=== PATIENT | male | born 1980 | race Asian ===

== ENCOUNTER 2021-06-27 23:46 | Emergency (ER) | payer OTHER ==
[~2021-06-27] VITALS: Ht 175.3 cm; Wt 83.7 kg
[2021-06-28] MEDS ORDERED: IV NORMAL SALINE 1,000ML 1,000 ML IV ONE
--- NOTE | 2021-06-28 00:01 | PHYS DOC ---
Past History Past Surgical History: No Surgical History General Adult EDM: Chief Complaint: NAUSEA/VOMITING/DIARRHEA HPI: HPI: 41-year-old male presents with nausea and vomiting that started 30 minutes ago. He states having a feeling of "impending doom". He feels fatigued and "not quite right". No reported fever at home. His only medication is lisinopril for hypertension. He did not take his dose today because he ran out yesterday. He gets a refill tomorrow. Patient denies abdominal pain, chest pain, shortness of breath. Review of Systems: Review of Systems: Constitutional: Denies fever or chills Eyes: Denies change in visual acuity HENT: Denies nasal congestion or sore throat Respiratory: Denies cough or shortness of breath Cardiovascular: Denies chest pain or edema GI: nausea, vomiting. Denies abdominal pain, bloody stools or diarrhea : Denies dysuria Musculoskeletal: Denies back pain or joint pain Integument: Denies rash Neurologic: Denies headache, focal weakness or sensory changes Endocrine: Denies polyuria or polydipsia Lymphatic: Denies swollen glands Psychiatric: Anxiety Current Medications: Current Meds: Current Medications Medications (Trade) Dose Ordered Sig/Whitney Start Time Stop Time Status Last Admin Dose Admin Ondansetron HCl (Zofran) 4 mg 1X ONCE 06/28/21 00:00 06/28/21 00:01 Sodium Chloride 1,000 ml @ 1,000 mls/hr 1X ONCE 06/28/21 00:00 06/28/21 00:59 Allergies: Allergies: Allergies Coded Allergies Type Severity Reaction Last Updated Verified No Known Drug Allergies 06/27/21 No Physical Exam: PE: Constitutional: Well developed, well nourished, no acute distress, non-toxic appearance. [] HENT: Normocephalic, atraumatic, bilateral external ears normal, oropharynx moist, no oral exudates, nose normal. [] Eyes: PERRLA, EOMI, conjunctiva normal, no discharge. [] Neck: Normal range of motion, no tenderness, supple, no stridor. [] Cardiovascular: Heart rate 110,regular rhythm, no murmur [] Lungs & Thorax: Bilateral breath sounds clear to auscultation [] Abdomen: Bowel sounds normal, soft, no tenderness, no masses, no pulsatile masses. [] Skin: Warm, dry, no erythema, no rash. [] Back: No tenderness, no CVA tenderness. [] Extremities: No tenderness, no cyanosis, no clubbing, ROM intact, no edema. [] Neurologic: Alert and oriented X 3, normal motor function, normal sensory function, no focal deficits noted. [] Psychologic: Affect normal, judgement normal, mood anxious. [] Current Patient Data: Vital Signs: Vital Signs Date Time Temp Pulse Resp B/P (MAP) Pulse Ox O2 Delivery O2 Flow Rate FiO2 06/27/21 23:54 99 20 155/110 (125) 99 Room Air EKG: EKG: [] Radiology/Procedures: Radiology/Procedures: [] Impressions: Exam: CT abdomen/pelvis with intravenous contrast Indication: Vomiting, elevated liver enzymes. Comparison: None Technique: Helical CT imaging performed of the abdomen and pelvis after the intravenous administration of 75 mL Omnipaque 300 contrast. Sagittal and coronal reformats were obtained. One or more of the following individualized dose reduction techniques were utilized for this examination: 1. Automated exposure control 2. Adjustment of the mA and/or kV according to patient size 3. Use of iterative reconstruction technique. Findings: Lower chest: There are a few tree-in-bud nodules in the left lower lobe. Heart is normal in size. Liver: Normal. Gallbladder/Biliary Tree: Normal. Pancreas: Normal. Spleen: Normal. Adrenal Glands: Normal. Kidneys/Ureters/Bladder: Kidneys are normal in size and enhance symmetrically. There is left nephrolithiasis with calculi measuring up to 7 mm. No hydronephrosis. Ureters and bladder are normal. Reproductive Organs: Prostate gland is normal. Stomach, small bowel, and colon: The stomach, small bowel, and colon are normal. The appendix is at the upper limit of normal caliber measuring 7 mm but has no evidence of inflammation. Vasculature: No aortic aneurysm. Lymph Nodes: No lymphadenopathy. Peritoneum and retroperitoneum: No free fluid or free air. Bones: No acute osseous abnormality. Miscellaneous: None. IMPRESSION: 1. Left nephrolithiasis. No hydronephrosis. 2. The appendix is at the upper limit of normal caliber measuring 7 mm but has no surrounding inflammation. This is likely within normal limits however recommend clinical correlation for early acute appendicitis. 3. Mild tree-in-bud nodules in the left lower lobe, likely infectious or inflammatory. Electronically signed by: Ana Montemayor MD (06/28/2021 2:00 AM) [facility] DICTATED AND SIGNED BY: ANA MONTEMAYOR MD DATE: 06/28/21150 CC: LILIAN CHOE DO; MIGUEL CUEVAS BODY TECHNICIAN ~ Heart Score: C/O Chest Pain: N/A Risk Factors: Risk Factors: DM, Current or recent (<one month) smoker, HTN, HLP, family history of CAD, obesity. Risk Scores: Score 0 - 3: 2.5% MACE over next 6 weeks - Discharge Home Score 4 - 6: 20.3% MACE over next 6 weeks - Admit for Clinical Observation Score 7 - 10: 72.7% MACE over next 6 weeks - Early Invasive Strategies Course & Med Decision Making: Course & Med Decision Making Pertinent Labs and Imaging studies reviewed. (See chart for details) The patient's labs are unremarkable except for some mildly elevated liver enzymes. He is continued to have vomiting after initial dose of 4mg of Zofran. We have given additional 4 mg of Zofran, 10 mg Reglan, 25 mg of Benadryl. I ordered a CT of the abdomen and pelvis. CT of abdomen pelvis shows some left nephrolithiasis but nothing in the ureters. Appendix is upper limit of normal without surrounding inflammation. There is some "tree-in-bud findings of the left lower lobe. Patient CBC is unremarkable. However the chest x-ray does appear to show a left lower lobe pneumonia. I will treat the patient with azithromycin and Rocephin in the emergency room and discharged with a prescription for azithromycin. He is stable for discharge at this time. [] Dragon Disclaimer: Dragon Disclaimer: This electronic medical record was generated, in whole or in part, using a voice recognition dictation system. Departure Departure: Impression: Primary Impression: Vomiting Additional Impression: Left lower lobe pneumonia Disposition: HOME / SELF CARE / HOMELESS Condition: STABLE Referrals: PCP,UNKNOWN (PCP) Patient Instructions: Nausea and Vomiting, [id number], Pneumonia, Adult, [id number] Scripts Ondansetron (ONDANSETRON ODT) 4 Mg Tab.rapdis 1 TAB PO PRN Q6-8HRS PRN for VOMITING, #16 TAB Prov: LILIAN CHOE DO 06/28/21 Azithromycin (AZITHROMYCIN TABLET) 250 Mg Tablet 250 MG PO DAILY for ANTI-BIOTIC for 4 Days, #4 TAB 0 Refills Prov: LILIAN CHOE DO 06/28/21 LILIAN CHOE DO Jun 28, 2021 00:01
[2021-06-28 00:14] LABS: BASO # 0.1 x10^3/uL (0.0-0.2); BASO % 1 % (0-3); EOS # 0.3 x10^3/uL (0.0-0.7); EOS % 4 % (0-3); HEMOGLOBIN 14.7 g/dL (13.0-17.5); LYMPH # 3.7 x10^3/uL (1.0-4.8); LYMPH % 48 % (24-48); MEAN CORPUSCULAR HEMOGLOBIN 31 pg (25-35); MEAN CORPUSCULAR HGB CONC 34 g/dL (31-37); MEAN CORPUSCULAR VOLUME 92 fL (79-100); MONO # 0.5 x10^3/uL (0.0-1.1); MONO % 6 % (0-9); NEUT # 3.3 x10^3uL (1.8-7.7); NEUT % 42 % (31-73); PLATELET COUNT 271 x10^3/uL (140-400); RED CELL DISTRIBUTION WIDTH 12.6 % (11.5-14.5); WHITE BLOOD COUNT 7.7 x10^3/uL (4.0-11.0)
[2021-06-28 00:31] LABS: CALCIUM 8.4 mg/dL (8.5-10.1); CREATININE 1.3 mg/dL (0.7-1.3); GFR 61.5; POTASSIUM 3.4 mmol/L (3.5-5.1)
[2021-06-28 00:37] LABS: ALBUMIN 3.5 g/dL (3.4-5.0); ALBUMIN/GLOBULIN RATIO 0.9 (1.0-1.7); TOTAL BILIRUBIN 0.3 mg/dL (0.2-1.0); TOTAL PROTEIN 7.2 g/dL (6.4-8.2)
[2021-06-28] MEDS ORDERED: diphenhydrAMINE 50 MG/ML VIAL IVP ONE (01:00)
[2021-06-28] MEDS ORDERED: ONDANSETRON PF 4 MG/2 ML VIAL. IVP ONE ×2 (01:00)
[2021-06-28] MEDS ORDERED: METOCLOPRAMIDE HCL 10 MG/2 ML VIAL. IVP ONE (01:00)
[2021-06-28] MEDS ORDERED: IOHEXOL 300 MG/ML 75 ML VIAL. IV ONE (01:00)
--- NOTE | 2021-06-28 02:03 | RAD ---
Exam: CT abdomen/pelvis with intravenous contrast Indication: Vomiting, elevated liver enzymes. Comparison: None Technique: Helical CT imaging performed of the abdomen and pelvis after the intravenous administratio n of 75 mL Omnipaque 300 contrast. Sagittal and coronal reformats were obtained. One or more of the following individualized dose reduction techniques were utilized for this examinat ion: 1. Automated exposure control 2. Adjustment of the mA and/or kV according to patient size 3. Use of iterative reconstruction technique. Findings: Lower chest: There are a few tree-in-bud nodules in the left lower lobe. Heart is normal in size. Liver: Normal. Gallbladder/Biliary Tree: Normal. Pancreas: Normal. Spleen: Normal. Adrenal Glands: Normal. Kidneys/Ureters/Bladder: Kidneys are normal in size and enhance symmetrically. There is left nephroli thiasis with calculi measuring up to 7 mm. No hydronephrosis. Ureters and bladder are normal. Reproductive Organs: Prostate gland is normal. Stomach, small bowel, and colon: The stomach, small bowel, and colon are normal. The appendix is at t he upper limit of normal caliber measuring 7 mm but has no evidence of inflammation. Vasculature: No aortic aneurysm. Lymph Nodes: No lymphadenopathy. Peritoneum and retroperitoneum: No free fluid or free air. Bones: No acute osseous abnormality. Miscellaneous: None. IMPRESSION: 1. Left nephrolithiasis. No hydronephrosis. 2. The appendix is at the upper limit of normal caliber measuring 7 mm but has no surrounding inflam mation. This is likely within normal limits however recommend clinical correlation for early acute ap pendicitis. 3. Mild tree-in-bud nodules in the left lower lobe, likely infectious or inflammatory. Electronically signed by: Ana Montemayor MD (06/28/2021 2:00 AM) [facility]
[2021-06-28 02:51] LABS: BARBITURATES NEG (NEG); BENZODIAZEPINES NEG (NEG); CANNABINOIDS NEG (NEG); COCAINE NEG (NEG); METHADONE NEG (NEG); OPIATES NEG (NEG); PHENCYCLIDINE NEG (NEG)
[2021-06-28 02:57] LABS: AMPHETAMINE/METHAMPHETAMINE NEG (NEG)
[2021-06-28 02:59] LABS: BACTERIA,URINE 0 /HPF (0-FEW); CLARITY,URINE CLEAR; COLOR,URINE YELLOW; GLUCOSE,URINE NEG (NEG); NITRITE,URINE NEG (NEG); RBC,URINE 0 /HPF (0-2); SQUAMOUS EPITHELIAL CELL,UR OCC /LPF; UROBILINOGEN,URINE 0.2 mg/dL (0.2 mg/dL); WBC,URINE OCC /HPF (0-4)
[2021-06-28] MEDS ORDERED: AZITHROMYCIN 250 MG TABLET. PO ONE (03:00)
[2021-06-28] MEDS ORDERED: ONDA4TAB12 PO (03:03)
[2021-06-28] MEDS ORDERED: AZIT250T6 PO (03:03)
[2021-06-28] MEDS ORDERED: IV NORMAL SALINE 50ML 50 ML ONE (03:20)
[2021-06-28] MEDS ORDERED: cefTRIAXone SODIUM 1 GM VIAL ONE (03:20)
--- NOTE | 2021-06-28 03:23 | RAD ---
EXAM: XR CHEST 1V 06/28/2021 2:12 AM CLINICAL INDICATION: Lung abnormality on CT abdomen pelvis COMPARISON: None TECHNIQUE: AP upright view of the chest FINDINGS: The heart is normal in size. Lungs are well-expanded and clear. No pleural effusion or pne umothorax. No acute osseous abnormalities. IMPRESSION: No cardiopulmonary abnormality. Electronically signed by: Ana Montemayor MD (06/28/2021 3:21 AM) [facility]
[2021-06-28 03:51] VITALS: BP 121/88
== END 2021-06-28 04:00 | disposition home or self-care (01) ==
LOC: ER 23:46
DX: J18.1 Lobar pneumonia, unspecified organism (principal)
CPT/HCPCS: 36415; 71045; 74177; 80053; 80307; 81001; 85025; 96361; 96365; 96375; 96376; 99285; J0696; J1200; J2405; J2765; J7030; Q9967